=== PATIENT | female | born 1980 | race Hispanic/Latino ===

== ENCOUNTER 2017-03-19 10:39 | Outpatient (CLI) | payer BC ==
[2017-03-19] MEDS ORDERED: LACTATED RINGERS 500 ML IV ONE (11:12)
[2017-03-19 12:43] VITALS: BP 121/67
--- NOTE | 2017-03-19 16:32 | Ultrasound Report ---
Limited transabdominal OB ultrasound. History: Premature rupture of membranes. Findings: A single fetus is identified in a cephalic presentation. The ALYSIA measures 8.1 cm which is normal. The heart rate is 141 beats per minute.
== END 2017-03-19 13:30 | disposition home or self-care (01) ==
LOC: TRG 10:39
PROVIDERS: ATTEND Obstetrics & Gynecology
DX: O99.333 Smoking (tobacco) complicating pregnancy, third trimester (principal); O47.03 False labor before 37 completed weeks of gestation, third trimester; Z3A.33 33 weeks gestation of pregnancy
CPT/HCPCS: 76815; 93005; 93010

== ENCOUNTER 2017-03-28 21:32 | Outpatient (CLI) | payer BC ==
[2017-03-28] MEDS ORDERED: LACTATED RINGERS 1,000 ML ONE (22:32)
[2017-03-28 22:45] VITALS: BP 127/63
[2017-03-28 22:52] LABS: Bilirubin,Urine NEG (Negative); Blood,Urine MOD (Negative); Ketones,Urine NEG (Negative); Leukocyte Esterase,Urine LG (Negative); Nitrite,Urine NEG (Negative); Urobilinogen,Urine < 2.0 mg/dL (<2.0)
[2017-03-28] MEDS ORDERED: LACTATED RINGERS 1,000 ML IV SCH (23:00)
[2017-03-28] MEDS ORDERED: REGLAN ONE (23:14)
[2017-03-28 23:17] LABS: RBC,Urine < 1.0 /HPF (0.0-6.0)
[2017-03-28] MEDS ORDERED: REGLAN IV ONE (23:18)
[2017-03-29] MEDS ORDERED: VISTARIL PO ONE (00:29)
--- NOTE | 2017-03-29 13:44 | Ultrasound Report ---
RIGHT UPPER QUADRANT ULTRASOUND: HISTORY: Right upper quadrant pain. Technique: Transabdominal ultrasound imaging with Doppler interrogation. FINDINGS: A 1.2 cm shadowing gallstone is identified within the gallbladder. No abnormal gallbladder dilatation, wall thickening or surrounding fluid. The CBD measures 4.9 mm. There is mild right hydronephrosis. No evidence for nephrolithiasis, cyst or mass. The right kidney is unremarkable otherwise measuring 13 cm. Images of the liver parenchyma, pancreas, and aorta are within normal limits. No perihepatic ascites. IMPRESSION: Gallstone. No evidence for acute cholecystitis. Mild right hydronephrosis.
== END 2017-03-29 00:25 | disposition home or self-care (01) ==
LOC: TRG 21:32 → LD 21:33 → TRG 03-29 00:25
PROVIDERS: ATTEND Obstetrics & Gynecology
DX: O99.333 Smoking (tobacco) complicating pregnancy, third trimester (principal); O99.613 Diseases of the digestive system complicating pregnancy, third trimester; K80.20 Calculus of gallbladder without cholecystitis without obstruction; N13.30 Unspecified hydronephrosis; O26.893 Other specified pregnancy related conditions, third trimester; R10.11 Right upper quadrant pain; Z3A.35 35 weeks gestation of pregnancy
CPT/HCPCS: 76705; 81001; 96360; J2765; J7120; Q0177

== ENCOUNTER 2017-05-07 22:45 | Outpatient (CLI) | payer BC ==
[2017-05-07 23:27] VITALS: BP 134/77
[2017-05-07] MEDS ORDERED: VISTARIL PO ONE (23:52)
[2017-05-07] MEDS ORDERED: VISTARIL ONE (23:59)
== END 2017-05-08 00:10 | disposition home or self-care (01) ==
LOC: TRG 22:45
PROVIDERS: ATTEND Obstetrics & Gynecology
DX: O99.333 Smoking (tobacco) complicating pregnancy, third trimester (principal); O48.0 Post-term pregnancy; Z3A.40 40 weeks gestation of pregnancy
CPT/HCPCS: Q0177

== ENCOUNTER 2021-02-06 13:13 | Outpatient (CLI) | payer OTHER ==
[2021-02-06 14:20] VITALS: BP 108/61
[2021-02-06] MEDS ORDERED: LACTATED RINGERS 1,000 ML IV SCH (14:45)
--- NOTE | 2021-02-06 15:33 | Vascular Lab Report ---
DUPLEX DOPPLER LOWER EXTREMITY VEINS, BILATERAL INDICATION / CLINICAL INFORMATION: swelling itching painful to touch. TECHNIQUE: Duplex doppler imaging was performed through the veins of both lower extremities using venous comfort jose and other maneuvers. COMPARISON: None available. FINDINGS: RIGHT COMMON FEMORAL VEIN: Negative. RIGHT FEMORAL VEIN: Negative. RIGHT POPLITEAL VEIN: Negative. RIGHT CALF VEINS: Negative. LEFT COMMON FEMORAL VEIN: Negative. LEFT FEMORAL VEIN: Negative. LEFT POPLITEAL VEIN: Negative. LEFT CALF VEINS: Negative. ADDITIONAL FINDINGS: None. IMPRESSION: 1. No sonographic evidence for DVT in either lower extremity. Signer Name: Daniel Workman MD Signed: 02/06/2021 3:28 PM Workstation Name: [facility]
== END 2021-02-06 15:20 | disposition home or self-care (01) ==
LOC: TRG 13:13 → APU 13:14 → TRG 15:20
PROVIDERS: ATTEND Obstetrics & Gynecology
DX: O09.893 Supervision of other high risk pregnancies, third trimester (principal); O12.03 Gestational edema, third trimester; Z3A.33 33 weeks gestation of pregnancy
CPT/HCPCS: 59025; 93970

== ENCOUNTER 2021-03-24 04:30 | Outpatient (CLI) | payer OTHER ==
[2021-03-24 07:44] VITALS: BP 117/82
== END 2021-03-24 10:35 | disposition home or self-care (01) ==
LOC: TRG 04:30 → APU 04:32 → TRG 10:35
PROVIDERS: ATTEND Obstetrics & Gynecology
DX: O09.893 Supervision of other high risk pregnancies, third trimester (principal); Z3A.40 40 weeks gestation of pregnancy
CPT/HCPCS: 59025; Q0177

== ENCOUNTER 2021-03-24 12:48 | Inpatient (IN) | payer OTHER ==
[2021-03-24] MEDS ORDERED: TERBUTALINE 1 MG/1 ML INJ SUB-Q PRN (13:21)
[2021-03-24] MEDS ORDERED: fentaNYL 100 MCG/2 ML INJ IV PRN (13:21)
[2021-03-24] MEDS ORDERED: ePHEDrine SULFATE 50 MG/1 ML INJ IV PRN ×2 (13:21→16:30)
[2021-03-24] MEDS ORDERED: CARBOPROST TROMETHAMINE 250 MCG/1 ML INJ IM PRN (13:21)
[2021-03-24] MEDS ORDERED: OXYTOCIN 10 UNIT/1 ML INJ IM PRN (13:21)
[2021-03-24] MEDS ORDERED: miSOPROStol 200 MCG TAB PR PRN (13:21)
[2021-03-24] MEDS ORDERED: ONDANSETRON 4 MG/2 ML INJ IV PRN ×2 (13:21→22:29)
[2021-03-24] MEDS ORDERED: ACETAMINOPHEN 325 MG TAB PO PRN (13:21)
[2021-03-24] MEDS ORDERED: MINERAL OIL 30 ML ORAL LIQD PO PRN (13:21)
[2021-03-24] MEDS ORDERED: BUTORPHANOL 2 MG/1 ML INJ IV PRN (13:21)
[2021-03-24] MEDS ORDERED: LOPERAMIDE 2 MG CAP PO PRN (13:21)
--- NOTE | 2021-03-24 13:27 | History and Physical Report ---
History of Present Illness Date of examination: 03/24/21 Chief complaint: Labor pain History of present illness: EDC Calculations LMP: 03/24/2021 Past History : 5 Term Births: 2 Premature Births: 0 Living Children: 2 Para: 2 Mult. Births: 0 Prev : 0 Prev. attempt? 0 Aborta: 2 Elect. Ab: 2 Spont. Ab: 0 Ectopics: 0 # 1 Delivery date: - Weeks Gestation: - Delivery type: EAB Hours of labor: - Delivery location: - Infant Sex: - weight: - Name: - # 2 Delivery type: EAB # 3 Delivery date: 07/23/2004 Weeks Gestation: 41 labor: no Delivery type: Hours of labor: 12 Anesthesia type: epidural Delivery location: [facility] Sex: Female weight: 8-14 Name: Leatha # 4 Delivery date: 05/09/2017 Weeks Gestation: 40 Delivery type: Vaginal Anesthesia type: epidural Delivery location: [facility] Infant Sex: female weight: 7.38 Comments: GBS+ Past Medical History: Depression Kidney Stone Allergies-seasonal Past Surgical History: Reviewed history from 09/25/2016 and no changes required: D&C: Past Medical History Abnormal PAP: negative Uterine Anomaly: negative Infection History HIV Risk Eval: no Genetic History ADVANCED MATERNAL AGE Congenital Heart Defect: Mom: no Dad: no Imelda Disease: Mom: no Dad: no Thalassemia Mom: no Dad: no Neural Tube Defect Mom: no Dad: no Down's Syndrome Mom: no Dad: no Johny-Sachs Mom: no Dad: no Sickle Cell Disease/Trait Mom: no Dad: no Hemophilia Mom: no Dad: no Muscular Dystrophy Mom: no Dad: no Cystic Fibrosis Mom: no Dad: no [place] Chorea Mom: no Dad: no Mental Retardation Mom: no Dad: no Fragile X Mom: no Dad: no Other Genetic/Chromosomal Disorder Mom: no Dad: no Child w/other defect Mom: no Dad: no Enviromental Exposures Xray Exposure: no Medication, drug, or alcohol use since LMP: yes Active Medications (reviewed today): PLUS/IRON 27-1 MG ORAL TABLET ( VIT-FE FUMARATE-FA) 1 po q day as directed ZOLOFT 100 MG ORAL TABLET (SERTRALINE HCL) 1 po q day as directed VALTREX 500 MG ORAL TABLET (VALACYCLOVIR HCL) one by mouth twice a day for 3 days ZOLOFT 100 MG ORAL TABLET (SERTRALINE HCL) 1 po q day as directed Current Allergies (reviewed today): * PCN (Critical) Past History Past Medical History: other (see HPI) Past Surgical History: other (see HPI) BRAND REPRESENTATIVE History: other (see HPI) Family/Genetic History: other (see HPI) Social history: other (see HPI) - Obstetrical History Expected Date of Delivery: 03/24/21 Actual Gestation: 40 Week(s) 0 Day(s) : 5 Para: 2 Hx # Term Pregnancies: 2 Number of Pregnancies: 0 Spontaneous Abortions: 0 Induced : 2 Number of Living Children: 2 Medications and Allergies Allergies Allergy/AdvReac Type Severity Reaction Status Date / Time Penicillins Allergy Severe swelling Verified 03/19/17 11:12 rash Home Medications Medication Instructions Recorded Confirmed Last Taken Type Caplet 1 tab PO DAILY 05/09/17 03/24/21 03/23/21 History Sertraline HCl [Zoloft] 50 mg PO DAILY 05/09/17 03/24/21 03/23/21 History valACYclovir [Valtrex] 1 tab PO DAILY 05/09/17 03/24/21 03/23/21 History Ibuprofen [Motrin 600 MG tab] 600 mg PO Q8H PRN #30 tablet 05/11/17 03/24/21 Unknown Rx Review of Systems All systems: negative - Vital Signs Vital signs: Vital Signs Pulse BP 95 H 130/71 03/24/21 13:09 03/24/21 13:09 Temp Pulse Resp BP Pulse Ox 98 H 130/71 97 03/24/21 13:20 03/24/21 13:09 03/24/21 13:20 - Physical Exam Breasts: Positive: normal Cardiovascular: Regular rate Lungs: Positive: Clear to auscultation, Normal air movement Abdomen: Positive: normal appearance, soft Genitourinary (Female): Positive: normal external genitalia, normal perenium Anus/Rectum: Positive: normal perianal skin Extremities: Positive: normal Deep Tendon Reflex Grade: Normal +2 - Obstetrical FHR: category 1 Uterine Contraction Monitor Mode: External Cervical Dilatation: 3.5 Cervical Effacement Percentage: 90 station: -1 Uterine Contraction Pattern: Irregular Uterine Tone Measurement Phase: Contraction Uterine Contraction Intensity: Mild Results All other labs normal. Assessment and Plan 40 y/o @ 40+0, pt reports discomfort in back and pelvis. She was seen this morning in triage and was 3 cms without change after 3 hours ambulating. She returned this afternoon 3.5/-1. Will admit for epidural and augmentation. Anticipate . - Patient Problems (1) 40 weeks gestation of Onset Date: ~05/09/17 Current Visit: No Status: Acute (2) Active labor Current Visit: No Status: Acute Plan to address problem: Admission orders in EMR. Pitocin augmentation, epidural PRN Anticipate (3) HSV (herpes simplex virus) infection Current Visit: Yes Status: Acute Plan to address problem: no lesions present upon inspection Pt denies prodome (4) Rubella non-immune status, antepartum Current Visit: Yes Status: Acute Plan to address problem: offer MMR
[2021-03-24] MEDS ORDERED: OXYTOCIN DRIP 30 UNITS/500 ML BAG IV SCH ×2 (14:00→15:00)
[2021-03-24] MEDS ORDERED: LIDOCAINE (2%) 20 MG/1 ML VIAL 20 ML MDV INFILTRATI ONE (14:21)
[2021-03-24] MEDS ORDERED: METHYLERGONOVINE MALEATE 0.2 MG/ML VIAL IM PRN (14:21)
[2021-03-24] MEDS ORDERED: LACTATED RINGERS 1,000 ML IV SCH (14:30)
[2021-03-24 14:57] LABS: Hematocrit 36.3 % (30.3-42.9); Hemoglobin 12.3 gm/dl (10.1-14.3); Mean Corpuscular HGB Conc 34 % (30-34); Mean Corpuscular Volume 89 fl (79-97); Platelet Count 338 K/mm3 (140-440); Red Cell Distribution Width 14.6 % (13.2-15.2)
--- NOTE | 2021-03-24 15:48 | Anesthesia Consultation ---
Anesthesia Consult and Med Hx Date of service: 03/24/21 - Airway Anesthetic Teeth Evaluation: Good ROM Head & Neck: Adequate Mental/Hyoid Distance: Adequate Mallampati Class: Class II Intubation Access Assessment: Probably Good - Pulmonary Exam CTA: Yes - Cardiac Exam Cardiac Exam: RRR - Pre-Operative Health Status ASA Pre-Surgery Classification: ASA2 Proposed Anesthetic Plan: Epidural - Pulmonary Hx Asthma: No COPD: No Hx Pneumonia: No - Cardiovascular System Hx Hypertension: No - Central Nervous System Hx Seizures: No Hx Psychiatric Problems: No - Endocrine Hx Renal Disease: No Hx End Stage Renal Disease: No Hx Hypothyroidism: No Hx Hyperthyroidism: No - Hematic Hx Anemia: No Hx Sickle Cell Disease: No - Other Systems Hx Alcohol Use: No Hx Obesity: Yes
--- NOTE | 2021-03-24 16:13 | Progress Note ---
Labor Epidural - Labor Epidural Start Time: 15:52 Stop Time: 16:08 Performed by:: EDUARDO ALMANZA Procedure: Patient is requesting epidural for labor pain. H&P, and labs reviewed. Procedure explained, questions answered, consent obtained. Patient in sitting position with blood pressure cuff and pulse ox on and working. Timeout performed immediately before start of procedure. Sterile chlorahexadine 0.5% prep/drape. 3 mL 1% lidocaine skin wheal at L[3]-L[4]. 18-gauge [employer] epidural needle advanced to [id number] with saline at 9 cm. Epidural catheter advanced to 15 cm, negative aspiration for blood and csf, negative test dose 3 ml 1.5% lidocaine with epinephrine. Epidural dexmedetomidine [30] mcg administered. Sterile steri-strips and tegaderm applied, followed by tape reinforcement. Patient tolerated procedure well. Manan CEJA
[2021-03-24] MEDS ORDERED: NALOXONE 2 MG/2 ML INJ IV PRN (16:30)
[2021-03-24] MEDS ORDERED: fentaNYL-BUPIV 2 MCG/ML-0.125% 200 MCG/100 ML BAG EPIDURAL SCH (16:30)
--- NOTE | 2021-03-24 18:16 | Progress Note ---
Assessment and Plan Anesthesia to replace epidural. Pitocin augmentation in progress. AROM - clear fluid. IUPC placed without difficulty. Anticipate - Patient Problems (1) 40 weeks gestation of Onset Date: ~05/09/17 Current Visit: No Status: Acute (2) Active labor Current Visit: No Status: Acute (3) HSV (herpes simplex virus) infection Current Visit: Yes Status: Acute (4) Rubella non-immune status, antepartum Current Visit: Yes Status: Acute Subjective - Subjective Date of service: 03/24/21 Principal diagnosis: IUP @ 40w; labor Interval history: EDC Calculations LMP: 03/24/2021 Past History : 5 Term Births: 2 Premature Births: 0 Living Children: 2 Para: 2 Mult. Births: 0 Prev : 0 Prev. attempt? 0 Aborta: 2 Elect. Ab: 2 Spont. Ab: 0 Ectopics: 0 # 1 Delivery date: - Weeks Gestation: - Delivery type: EAB Hours of labor: - Delivery location: - Infant Sex: - weight: - Name: - # 2 Delivery type: EAB # 3 Delivery date: 07/23/2004 Weeks Gestation: 41 labor: no Delivery type: Hours of labor: 12 Anesthesia type: epidural Delivery location: [facility] Sex: Female weight: 8-14 Name: Leatha # 4 Delivery date: 05/09/2017 Weeks Gestation: 40 Delivery type: Vaginal Anesthesia type: epidural Delivery location: [facility] Infant Sex: female weight: 7.38 Comments: GBS+ Past Medical History: Depression Kidney Stone Allergies-seasonal Past Surgical History: Reviewed history from 09/25/2016 and no changes required: D&C: Past Medical History Abnormal PAP: negative Uterine Anomaly: negative Infection History HIV Risk Eval: no Genetic History ADVANCED MATERNAL AGE Congenital Heart Defect: Mom: no Dad: no Imelda Disease: Mom: no Dad: no Thalassemia Mom: no Dad: no Neural Tube Defect Mom: no Dad: no Down's Syndrome Mom: no Dad: no Johny-Sachs Mom: no Dad: no Sickle Cell Disease/Trait Mom: no Dad: no Hemophilia Mom: no Dad: no Muscular Dystrophy Mom: no Dad: no Cystic Fibrosis Mom: no Dad: no [place] Chorea Mom: no Dad: no Mental Retardation Mom: no Dad: no Fragile X Mom: no Dad: no Other Genetic/Chromosomal Disorder Mom: no Dad: no Child w/other defect Mom: no Dad: no Enviromental Exposures Xray Exposure: no Medication, drug, or alcohol use since LMP: yes Active Medications (reviewed today): PLUS/IRON 27-1 MG ORAL TABLET ( VIT-FE FUMARATE-FA) 1 po q day as directed ZOLOFT 100 MG ORAL TABLET (SERTRALINE HCL) 1 po q day as directed VALTREX 500 MG ORAL TABLET (VALACYCLOVIR HCL) one by mouth twice a day for 3 days ZOLOFT 100 MG ORAL TABLET (SERTRALINE HCL) 1 po q day as directed Current Allergies (reviewed today): * PCN (Critical) Patient reports: new complaints (epidural in place - hot spot on lower left side) Objective - Vital Signs Vital Signs: Vital Signs - 12hr 03/24/21 03/24/21 03/24/21 13:09 13:10 13:15 Temperature Pulse Rate 95 H 92 H 100 H Respiratory Rate Blood Pressure 130/71 O2 Sat by Pulse 97 97 Oximetry 03/24/21 03/24/21 03/24/21 13:20 13:25 13:30 Temperature 98.2 F Pulse Rate 98 H 103 H 87 Respiratory Rate Blood Pressure O2 Sat by Pulse 97 98 97 Oximetry 03/24/21 03/24/21 03/24/21 13:35 13:40 13:45 Temperature Pulse Rate 92 H 100 H 101 H Respiratory Rate Blood Pressure O2 Sat by Pulse 96 96 96 Oximetry 03/24/21 03/24/21 03/24/21 13:50 13:55 14:00 Temperature Pulse Rate 89 104 H 88 Respiratory Rate Blood Pressure O2 Sat by Pulse 96 97 96 Oximetry 03/24/21 03/24/21 03/24/21 15:19 15:24 15:29 Temperature Pulse Rate 29 L 83 81 Respiratory Rate Blood Pressure O2 Sat by Pulse 85 98 98 Oximetry 03/24/21 03/24/21 03/24/21 15:34 15:39 15:47 Temperature Pulse Rate 79 89 Respiratory Rate Blood Pressure O2 Sat by Pulse 98 99 94 Oximetry 03/24/21 03/24/21 03/24/21 15:49 15:50 15:52 Temperature Pulse Rate 89 88 88 Respiratory Rate Blood Pressure 137/74 144/79 O2 Sat by Pulse 99 Oximetry 03/24/21 03/24/21 03/24/21 15:55 15:57 16:00 Temperature Pulse Rate 88 99 H 104 H Respiratory Rate Blood Pressure 137/77 140/75 O2 Sat by Pulse 98 Oximetry 03/24/21 03/24/21 03/24/21 16:02 16:05 16:07 Temperature Pulse Rate 107 H 94 H 93 H Respiratory Rate Blood Pressure 143/81 O2 Sat by Pulse 99 100 Oximetry 03/24/21 03/24/21 03/24/21 16:10 16:12 16:17 Temperature Pulse Rate 84 85 83 Respiratory Rate Blood Pressure 148/71 O2 Sat by Pulse 99 99 Oximetry 03/24/21 03/24/21 03/24/21 16:21 16:22 16:25 Temperature Pulse Rate 90 89 90 Respiratory Rate Blood Pressure 136/67 126/60 O2 Sat by Pulse 99 Oximetry 03/24/21 03/24/21 03/24/21 16:27 16:30 16:32 Temperature Pulse Rate 89 85 82 Respiratory Rate Blood Pressure 127/62 O2 Sat by Pulse 99 99 Oximetry 03/24/21 03/24/21 03/24/21 16:35 16:37 16:40 Temperature Pulse Rate 82 88 80 Respiratory Rate Blood Pressure 125/64 126/66 O2 Sat by Pulse 98 Oximetry 03/24/21 03/24/21 03/24/21 16:41 16:45 16:47 Temperature Pulse Rate 84 83 91 H Respiratory Rate Blood Pressure 131/66 O2 Sat by Pulse 98 97 Oximetry 03/24/21 03/24/21 03/24/21 16:50 16:52 16:55 Temperature Pulse Rate 80 81 80 Respiratory Rate Blood Pressure 132/67 130/68 O2 Sat by Pulse 98 Oximetry 03/24/21 03/24/21 03/24/21 16:57 17:00 17:02 Temperature Pulse Rate 86 80 81 Respiratory Rate Blood Pressure 129/71 O2 Sat by Pulse 98 98 Oximetry 03/24/21 03/24/21 03/24/21 17:05 17:07 17:10 Temperature Pulse Rate 77 80 86 Respiratory Rate Blood Pressure 123/66 122/66 O2 Sat by Pulse 99 Oximetry 03/24/21 03/24/21 03/24/21 17:11 17:15 17:16 Temperature Pulse Rate 78 80 78 Respiratory Rate Blood Pressure 121/68 O2 Sat by Pulse 98 97 Oximetry 03/24/21 03/24/21 03/24/21 17:20 17:21 17:25 Temperature Pulse Rate 78 78 78 Respiratory Rate Blood Pressure 122/74 119/61 O2 Sat by Pulse 100 Oximetry 03/24/21 03/24/21 03/24/21 17:27 17:31 17:36 Temperature Pulse Rate 80 84 93 H Respiratory Rate Blood Pressure O2 Sat by Pulse 97 98 98 Oximetry 03/24/21 03/24/21 03/24/21 17:37 17:41 17:46 Temperature Pulse Rate 93 H 100 H Respiratory 20 Rate Blood Pressure 119/61 148/84 O2 Sat by Pulse 99 Oximetry 03/24/21 03/24/21 03/24/21 17:47 17:52 17:56 Temperature Pulse Rate 89 95 H 97 H Respiratory Rate Blood Pressure 149/78 O2 Sat by Pulse 100 99 100 Oximetry 03/24/21 03/24/21 03/24/21 17:59 18:02 18:06 Temperature Pulse Rate 90 96 H 116 H Respiratory Rate Blood Pressure 150/80 O2 Sat by Pulse 100 100 Oximetry 03/24/21 18:07 Temperature Pulse Rate 106 H Respiratory Rate Blood Pressure 139/67 O2 Sat by Pulse Oximetry - Exam Breasts: normal Cardiovascular: Regular rate Lungs: Clear to auscultation, Normal air movement Abdomen: Present: normal appearance, soft Vulva: both: normal Uterus: Present: normal FHR: category 1 Uterine Contraction Monitor Mode: Internal Cervical Dilatation: 4 (AROM - clear) Cervical Effacement Percentage: 90 station: -1 Uterine Contraction Frequency (min): 3-4 Uterine Contraction Duration: 60 Uterine Contraction Pattern: Regular Uterine Tone Measurement Phase: Contraction Uterine Contraction Intensity: Moderate Extremities: normal Deep Tendon Reflex Grade: Normal +2 - Labs Labs: Laboratory Results - last 24 hr 03/24/21 03/24/21 03/24/21 13:58 13:58 14:00 WBC 10.7 RBC 4.10 Hgb 12.3 Hct 36.3 MCV 89 MCH 30 MCHC 34 RDW 14.6 Plt Count 338 Syphilis IgG Antibody Nonreactive Blood Type A POSITIVE Antibody Screen Negative
--- NOTE | 2021-03-24 19:42 | Procedure Note ---
OB Delivery Note - Delivery Date of Delivery: 03/24/21 ( Male "Elio") Sensor Specialist: NEGRO BEARDEN Estimated blood loss: 200cc - Vaginal Delivery presentation: vertex Delivery position: OA (WENDY) Intrapartum events: none Delivery induction: none Delivery augmentation: rupture of membranes, pitocin Delivery monitor: external FHT, internal uterine Route of delivery: Delivery placenta: spontaneous Delivery cord: nuchal cord, 3 umbilical vessels Episiotomy: none Delivery laceration: none Anesthesia: epidural Delivery comments: baby boy birthed over intact perineum, WENDY, placed skin to skin on mother's abdomen. 3 vessel cord clamped and cut after cessation of pulsation. Placenta delivered flores, intact and complete. no lacs to repair. pit IVF. EBL 200ml. All counts correct. Mother and infant LDR stable. - Infant A at 1 minute: 8 at 5 minutes: 9 Gender: Male (7#14oz)
--- NOTE | 2021-03-24 20:19 | Progress Note ---
Labor Epidural - Labor Epidural Start Time: 18:10 Stop Time: 18:14 Performed by:: EDUARDO ALMANZA Procedure: Patient with R sided hot spot, not fixed by bolus, requests epidural be replaced. Patient in sitting position with blood pressure cuff and pulse ox on and working. Timeout performed immediately before start of procedure. Sterile chlorahexadine 0.5% prep/drape. 3 mL 1% lidocaine skin wheal at L3-L4. 18-gauge [employer] epidural needle advanced to [id number] with saline at [7] cm. 27-gauge spinal needle advanced until clear, free-flowing CSF. Intrathecal dexmedetomidine [5] mcg administered and needle removed. Epidural catheter advanced to [12] cm, negative aspiration for blood and csf, negative test dose 3 ml 1.5% lidocaine with epinephrine. Sterile steri-strips and tegaderm applied, followed by tape reinforcement. Patient tolerated procedure well.
[2021-03-24] MEDS ORDERED: BENZOCAINE/MENTHOL 20/0.5% TOP SPRAY 56 GM TP PRN (22:29)
[2021-03-24] MEDS ORDERED: MAGNESIUM HYDROXIDE (MOM) ORAL LIQD UDC PO PRN (22:29)
[2021-03-24] MEDS ORDERED: PROMETHAZINE 25 MG TAB PO PRN (22:29)
[2021-03-24] MEDS ORDERED: WITCH HAZEL/ GLYCERIN PAD TP PRN (22:29)
[2021-03-24] MEDS ORDERED: KETOROLAC 30 MG/1 ML INJ IV PRN (22:29)
[2021-03-24] MEDS ORDERED: diphenhydrAMINE 25 MG CAP PO PRN (22:29)
[2021-03-24] MEDS ORDERED: LANOLIN/ZINC/DIMETHICONE (LANSINOH) 7 GM TP PRN ×2 (22:29)
[2021-03-24] MEDS: DOCUSATE SODIUM 100 MG CAP PO SCH (23:31)
[2021-03-24] MEDS: IBUPROFEN 800 MG TAB PO SCH (23:31)
[2021-03-25] MEDS: IBUPROFEN 800 MG TAB PO SCH (04:45)
[2021-03-25] MEDS ORDERED: MEASLES, MUMPS & RUBELLA 12,500 UNIT/0.5 ML VACCINE SUB-Q ONE ×2 (06:00→19:59)
[2021-03-25] MEDS ORDERED: TETANUS,DIPH,PERTUSS(ACELL) VACCINE 0.5 ML SYRINGE IM ONE ×2 (06:00→19:59)
--- NOTE | 2021-03-25 08:21 | Discharge Summary ---
Providers - Providers Date of Admission: 03/24/21 13:21 Date of discharge: 03/25/21 (Pt has a strong desire to go home. ) Attending physician: VICKY LAKE Primary care physician: VICKY LAKE Hospitalization Reason for admission: active labor Delivery: Episiotomy: none Laceration: none Other procedures: none complications: none Discharge diagnosis: IUP at term delivered [place] baby: male Hospital course: S: Pt doing well. Ambulating, voiding, and passing flatus without difficulty. BC: is getting a vasectomy. O: VSS. Adequate I&O's. Fundus firm with minimal bleeding noted. H/H 12.0/35.2. A: 40 y.o. s/p . In good condition and can be discharged home. P: Discharge with instructions. visit to be scheduled in 4 weeks. Son's circumcision to be scheduled in 1 week. Condition at discharge: Good Disposition: DC/TX-02 SHRT-TRM GEN HOSP IP Plan - Discharge Medications Prescriptions: Lidocain2.5%/Prilocai2.5% [Emla] 1 applic TP ONCE #1 tube Ibuprofen [Motrin] 800 mg PO Q8HR PRN #30 tablet PRN Reason: Pain, Moderate (4-6) - Provider Discharge Summary Activity: routine, no sex for 6 weeks, no heavy lifting 4 weeks, no strenuous exercise Diet: routine Instructions: routine Additional instructions: [] Smoking cessation referral if applicable(refer to patient education folder for contact #) [] Refer to [facility]'s [facility] Booklet Call your doctor immediately for: * Fever > 100.5 * Heavy vaginal bleeding ( >1 pad per hour) * Severe persistent headache * Shortness of breath * Reddened, hot, painful area to leg or breast * Drainage or odor from incision. * Keep incision clean and dry at all times and follow doctor's instructions r egarding bathing/showering Congratulations on your baby boy! Thank you for allowing us to take care of you! Please schedule your visit in 4 weeks. Trini schedule your son's circumcision in 1 week at the office. You have been given a prescription for EMLA cream for your son's circumcision. Please do no use this cream at home, but bring it with you to your son's circumcision appointment. If you have any questions or concerns after discharge please do not hesitate to call the office at [phone]. - Follow up plan Follow up: VICKY LAKE MD [Primary Care Provider] - 7 Days Forms: [facility] Discharge Summary, Discharge Signature Page
[2021-03-25 08:30] LABS: Hematocrit 35.2 % (30.3-42.9)
[2021-03-25] MEDS: DOCUSATE SODIUM 100 MG CAP PO SCH (08:59)
[2021-03-25] MEDS ORDERED: PRENATAL VIT27-FE FUMARATE-FOLIC ACID VIT TAB PO SCH (10:00)
--- NOTE | 2021-03-25 16:01 | Post Anesthesia Evaluation ---
- Post Anesthesia Evaluation Patient Participated: Yes Airway Patent: Yes Stable Respiratory Function: Yes Nausea/Vomiting: No Temp > 96.8F: Yes Pain Manageable: Yes Adequeate Hydration: Yes Anesthesia Complications: No Block Receding Appropriately: Yes
[2021-03-25 16:49] VITALS: BP 105/46
== END 2021-03-25 20:58 | disposition home or self-care (01) | DRG 806 ==
LOC: TRG 12:48 → APU 12:49 → TRG 13:37 → LD 15:07 → OB 22:24
PROVIDERS: ADMIT Obstetrics & Gynecology; ATTEND Obstetrics & Gynecology
PROC: 10E0XZZ Delivery of Products of Conception, External Approach (ICD-10-PCS; principal; 2021-03-24)
PROC: 3E0R3BZ Introduction of Anesthetic Agent into Spinal Canal, Percutaneous Approach (ICD-10-PCS; 2021-03-24)
PROC: 00HU33Z Insertion of Infusion Device into Spinal Canal, Percutaneous Approach (ICD-10-PCS; 2021-03-24)
PROC: 10907ZC Drainage of Amniotic Fluid, Therapeutic from Products of Conception, Via Natural or Artificial Opening (ICD-10-PCS; 2021-03-24)
PROC: 10H07YZ Insertion of Other Device into Products of Conception, Via Natural or Artificial Opening (ICD-10-PCS; 2021-03-24)
PROC: 3E0234Z Introduction of Serum, Toxoid and Vaccine into Muscle, Percutaneous Approach (ICD-10-PCS; 2021-03-25)
PROC: 3E0134Z Introduction of Serum, Toxoid and Vaccine into Subcutaneous Tissue, Percutaneous Approach (ICD-10-PCS; 2021-03-25)
DX: O69.81X0 Labor and delivery complicated by cord around neck, without compression, not applicable or unspecified (principal); O98.52 Other viral diseases complicating childbirth; Z37.0 Single live birth; B00.9 Herpesviral infection, unspecified; Z3A.40 40 weeks gestation of pregnancy; Z23 Encounter for immunization; Z88.0 Allergy status to penicillin; Z79.899 Other long term (current) drug therapy
CPT/HCPCS: 36415; 59025; 85014; 85018; 85027; 86592; 86850; 86900; 86901; 90707; 90715; 99211; G0378; G0463; J2590; J7120